=== PATIENT | female | born 1960 | race Caucasian/White ===

== ENCOUNTER 2022-12-14 10:19 | Day surgery (SDC) | payer OTHER ==
[2022-12-11 10:37] LABS: Potassium 3.7 mEq/L (3.5-5.1)
[2022-12-14] MEDS ORDERED: NA CHLORIDE 0.9% 1,000 ML ONE (10:55)
[2022-12-14] MEDS ORDERED: LIDOCAINE 1% MPF 5 ML VIAL ONE (11:42)
[2022-12-14] MEDS ORDERED: propofoL 200 MG/20 ML VIAL IV ONE (11:42)
[2022-12-14 13:09] VITALS: TEMP 97.5
[2022-12-14 13:10] VITALS: O2SAT 100
[2022-12-14 13:11] VITALS: BP 106/76
== END 2022-12-14 13:14 | disposition home or self-care (01) ==
LOC: OR 10:19
PROVIDERS: ATTEND Surgery
PROC: 0DJD8ZZ Inspection of Lower Intestinal Tract, Via Natural or Artificial Opening Endoscopic (ICD-10-PCS; principal; 2022-12-14 12:00)
DX: Z12.11 Encounter for screening for malignant neoplasm of colon (principal); K57.30 Diverticulosis of large intestine without perforation or abscess without bleeding; K64.8 Other hemorrhoids
CPT/HCPCS: 80048; 36415; 82947; J2704; J2001; J7030; G0121

== ENCOUNTER 2025-03-13 08:16 | Day surgery (SDC) | payer OTHER ==
[2025-03-10 09:55] LABS: Absolute Lymphocytes (CBC) 1.6 K/uL (0.7-4.9); Hematocrit 40.7 % (36.0-45.0); Hemoglobin 13.6 g/dL (12.0-15.0); MCH 27.6 pg (27.0-35.0); MCHC 33.4 g/dL (32.0-36.0); MCV 82.6 fL (80-100); MPV 7.9 fL (7.6-11.3); Nucleated RBC Absolute Count 0.0 (0-0); Nucleated Red Blood Cells % 0.1 % (0-0); RBC Red Blood Cell Count 4.92 M/uL (3.86-4.86); White Blood Count 5.20 thou/uL (4.3-10.9)
[2025-03-10 10:07] LABS: Anion Gap 8.5 mEq/L (5.0-15.0); BUN Blood Urea Nitrogen 17.0 mg/dL (7-18); Glucose Level 199.0 mg/dL (74-106); Potassium 4.5 mEq/L (3.5-5.1)
[2025-03-13] MEDS: NA CHLORIDE 0.9% 1,000 ML ONE (08:46)
[2025-03-13] MEDS ORDERED: LIDOCAINE 1% MPF 5 ML VIAL ONE (10:06)
[2025-03-13 11:26] VITALS: BP 125/62; TEMP 98.3; O2SAT 98
== END 2025-03-13 11:10 | disposition home or self-care (01) ==
LOC: OR 08:16
PROVIDERS: ATTEND Surgery
PROC: 0DB68ZX Excision of Stomach, Via Natural or Artificial Opening Endoscopic, Diagnostic (ICD-10-PCS; 2025-03-13)
PROC: 0DB48ZX Excision of Esophagogastric Junction, Via Natural or Artificial Opening Endoscopic, Diagnostic (ICD-10-PCS; 2025-03-13)
PROC: 0DB98ZX Excision of Duodenum, Via Natural or Artificial Opening Endoscopic, Diagnostic (ICD-10-PCS; principal; 2025-03-13 10:00)
DX: D50.9 Iron deficiency anemia, unspecified (principal); K29.50 Unspecified chronic gastritis without bleeding; R11.0 Nausea; R53.82 Chronic fatigue, unspecified
CPT/HCPCS: 93005; 85025; 80048; 36415; 88312; 82947; 88305; 43239; J2704; J2003; J7030; 88313